=== PATIENT | female | born 1995 | race Caucasian/White ===

== ENCOUNTER → 2021-01-25 | Outpatient (CLI) | payer SELFPAY ==
[~2021-01-25] MED LIST: Bactrim Ds Tab1 EACH PO; DEXA4 PO; IBUP600 PO; MAGIC MOUTHWASH; Norco 5-325 Ta1 EACH PO; PENVK500 PO; Prednisone10 MG PO; Pyridium200 MG PO; RXSULTRIDS PO; SULTRIDS PO
== END | disposition home or self-care (01) ==
LOC: LAB SHORT 18:31
DX: R35.0 Frequency of micturition (principal)
CPT/HCPCS: 87077; 87086; 87186

== ENCOUNTER → 2023-10-22 | Outpatient (CLI) | payer BC ==
[~2023-10-22] MED LIST changes: +Acetaminophen650 M1 PO
== END ==
LOC: LAB 17:34 → LAB SHORT 17:34
DX: N39.0 Urinary tract infection, site not specified (principal)
CPT/HCPCS: 87086

== ENCOUNTER → 2024-06-24 | Outpatient (CLI) | payer BC | LOC: LAB SHORT 09:15 → LAB 09:15 | PROVIDERS: Family Medicine | DX: Z01.419 Encounter for gynecological examination (general) (routine) without abnormal findings (principal) | CPT/HCPCS: G0123 ==

== ENCOUNTER 2024-08-22 17:36 | Observation (INO) | payer BC ==
[~2024-08-22] VITALS: Ht 165.1 cm; Wt 76.5 kg
[~2024-08-22 17:36] MED LIST changes: -HYDR1TAB94 PO
[2024-08-22 18:37] LABS: Source, Urine Clean Catch
[2024-08-22] MEDS ORDERED: MetroNIDAZOLE 500MG/NS 100 ml 100 ML IV ONE (18:40)
[2024-08-22] MEDS ORDERED: Ciprofloxacin 400MG/D5 200ML 200 ML IV ONE (18:40)
[2024-08-22 18:42] LABS: Bilirubin, Urine Neg (Neg); Blood, Urine 2+ (Neg); Glucose Qualitative, Urine Neg (Neg); Ketones, Urine Neg (Neg); Leukocyte Esterase, Urine 1+ (Neg); Nitrite, Urine Neg (Neg); Protein, Urine 1+ (Neg); Urobilinogen, Urine NORM (Normal)
[2024-08-22 18:51] LABS: Appearance, Urine Hazy (Clear); Color, Urine Pale Yellow (P-Yellow)
[2024-08-22 18:53] LABS: Bacteria Mod /hpf; Red Blood Cells, Urine 0-2 /hpf (0-2); Squamous Epithelial Cells Mod /hpf (Few)
[2024-08-22 19:01] LABS: Albumin, Blood 3.9 g/dL (3.4-5.0); Albumin/Globulin Ratio 1.2 (0.8-1.8); Bilirubin, Total 0.4 mg/dL (0.1-1.0); Bun/Creatinine Ratio 14.2 (12.0-20.0); Calcium, Blood 8.8 mg/dL (8.5-10.1); Creatinine, Blood 0.77 mg/dL (0.40-1.00); Globulin, Blood 3.3 g/dL (2.2-4.0); Potassium, Blood 3.5 mmol/L (3.5-5.5); Total Protein, Blood 7.2 g/dL (6.4-8.2)
[2024-08-22] MEDS ORDERED: HYDROmorphone HCl/Pf 1MG SYR IV PRN (19:35)
[2024-08-22] MEDS ORDERED: Lactated Ringer's 1,000 ML IV SCH (19:35)
[2024-08-22] MEDS ORDERED: Ondansetron HCl 2 MG / ML 2ML Vial IV PRN (19:35)
[2024-08-22] MEDS ORDERED: Acetaminophen 325 MG TABLET PO PRN (19:35)
[2024-08-22] MEDS ORDERED: OxyCODONE HCL 5 MG TAB PO PRN (19:40)
[2024-08-22] MEDS ORDERED: Ketorolac Tromethamine 15mg Vial IV PRN (19:45)
[2024-08-22 20:48] VITALS: BP 126/80
[2024-08-23] VITALS (13 sets, daily range): BP systolic 110–127; BP diastolic 58–82
[2024-08-23] MEDS ORDERED: MetroNIDAZOLE 500MG/NS 100 ml 100 ML IV SCH (03:00)
--- NOTE | 2024-08-23 04:57 | NUR ---
FUSION JUNCTURE GRINDER SUMMARY PT WAS A NEW ADMIT FROM THE ED TONIGHT. ADMITTED FOR ACUTE APPY AND SET TO HAVE SURGERY LATER TODAY. PT AAOX4 AND INDEPENDENT WITH AMBULATION. NPO SINCE ARRIVING TO UNIT. PT REPORTS PAIN IS TOLERABLE UNLESS SHE HAS TO MOVE AROUND AND HAS ONLY REQUIRED TYLENOL X1 TONIGHT. LR RUNNING AT 100 ML/HR. SCD'S IN PLACE. PT HAS BEEN ABLE TO REST THROUGH THE NIGHT. SIGNIFICANT OTHER AT BEDSIDE.
[2024-08-23] MEDS ORDERED: Ciprofloxacin 400MG/D5 200ML 200 ML IV SCH (07:00)
[2024-08-23] MEDS ORDERED: propofoL 20 ML IV ONE (12:21)
[2024-08-23] MEDS ORDERED: Sugammadex Sodium 200 MG/2ML SDV (100 MG/ML) ONE ×2 (12:22→14:31)
[2024-08-23] MEDS ORDERED: FentaNYL Citrate 50 MCG/ML 2 ML Injection ONE ×2 (12:22→14:56)
[2024-08-23] MEDS ORDERED: Midazolam HCl 1MG / ML 2ML Vial ONE (12:22)
[2024-08-23] MEDS ORDERED: Ondansetron HCl 2 MG / ML 2ML Vial ONE (12:36)
[2024-08-23] MEDS ORDERED: Dexamethasone Sod Phos 10 MG/ML 1ML VIAL ONE (12:36)
[2024-08-23] MEDS ORDERED: Bupivacaine 0.5% HCl 5 MG/ML 30MLVIAL ONE (13:10)
--- NOTE | 2024-08-23 13:16 | NUR ---
PT HERE VIA K[facility] M[facility]ESES APPY. Patient confirms NPO status and agrees with scheduled surgery. Pre-Op teaching done. Pt verbalizes understanding. History, Chart, Medications and Allergies reviewed before start of procedure.
[2024-08-23] MEDS ORDERED: OxyCODONE HCL 5 MG TAB PO PRN (14:00)
[2024-08-23] MEDS ORDERED: Ketorolac Tromethamine 30mg Vial ONE (14:55)
--- NOTE | 2024-08-23 15:27 | NUR ---
pt to room 226. lap sites x -3 with tegaderm/gauze present. pt alert to verbal rates pain /. vss. will continue to monitor.
--- NOTE | 2024-08-23 16:32 | NUR ---
PT WITH GOOD PAIN CONTROL AFTER OXYCODONE. RATES PAIN 2/10. OOB TO BR FOR SUCCESSFUL VOID. SO FILLING RX AT PHARMACY. WILL CONTINUE TO MONITOR.
[2024-08-23] MEDS ORDERED: HYDR1TAB94 PO (17:22)
--- NOTE | 2024-08-23 17:29 | NUR ---
DC INSTRUCT REVIEWED WITH PT. STATED UNDERSTANDING. IV DC'D INTACT. AWAITING SO FOR RIDE HOME. PRINTED INSTRUCT DISPENSED.
== END 2024-08-23 17:30 | disposition home or self-care (01) ==
LOC: ER 17:36 → SURS 17:37
PROVIDERS: Student in an Organized Health Care Education/Training Program; Surgery; ADMIT Surgery
PROC: 0DTJ0ZZ Resection of Appendix, Open Approach (ICD-10-PCS; principal; 2024-08-23 12:00)
DX: K35.80 Unspecified acute appendicitis (principal); K21.9 Gastro-esophageal reflux disease without esophagitis; Z88.0 Allergy status to penicillin
CPT/HCPCS: 80053; 81001; 81025; 84703; 87086; 88304; 96365-59; 96366; 96367; 96376; 99285-25; A9270; G0378; J0744; J1100; J1885; J2250; J2405; J2704; J3010; J7120

== ENCOUNTER → 2024-08-22 | Outpatient (CLI) | payer BC ==
[~2024-08-22] MED LIST changes: +HYDR1TAB94 PO
[2024-08-22 16:05] LABS: BASOPHILS ABSOLUTE AUTO 0.05 K/mm3 (0.00-0.23); BASOPHILS PERCENT AUTO 0 % (0-2); EOSINOPHILS ABSOLUTE AUTO 0.07 K/mm3 (0.00-0.68); EOSINOPHILS PERCENT AUTO 1 % (0-6); Hematocrit 37.1 % (33.0-51.0); Hemoglobin 11.3 g/dL (11.5-16.0); IMMATURE GRAN ABSOLUTE AUTO 0.04 K/mm3 (0.00-0.10); IMMATURE GRAN PERCENT AUTO 0 % (0-1); LYMPHOCYTES ABSOLUTE AUTO 1.92 K/mm3 (0.84-5.20); LYMPHOCYTES PERCENT AUTO 17 % (21-46); MONOCYTES ABSOLUTE AUTO 0.66 K/mm3 (0.16-1.47); MONOCYTES PERCENT AUTO 6 % (4-13); Mean Corpuscular HGB Conc 30.5 g/dL (31.5-36.5); Mean Corpuscular Volume 75 fL (80-100); Mean Platelet Volume 10.4 fL (9.1-12.4); NEUTROPHILS ABSOLUTE AUTO 8.91 K/mm3 (1.96-9.15); NEUTROPHILS PERCENT AUTO 77 % (41-73); Platelet Count 306 K/mm3 (150-400); RDW Coefficient Variation 17.2 % (11.7-14.2); RDW Standard Deviation 44.3 fL (35.1-46.3); Red Blood Cell Count 4.92 M/mm3 (3.80-5.20); White Blood Cell Count 11.65 K/mm3 (4.00-11.30)
== END ==
LOC: LAB 16:02 → LAB SHORT 16:02
PROVIDERS: Physician Assistant
DX: R10.9 Unspecified abdominal pain (principal)
CPT/HCPCS: 85025

== ENCOUNTER → 2024-08-22 | Outpatient (CLI) | payer BC | LOC: LAB 17:51 → LAB SHORT 17:51 | DX: R82.81 Pyuria (principal) | CPT/HCPCS: 87086 ==